=== PATIENT | female | born 1965 | race Caucasian/White ===

== ENCOUNTER 2016-04-18 13:28 | Emergency (ER) ==
[2016-04-18 14:00] VITALS: BP 173/109
--- NOTE | 2016-04-18 14:11 | PROVIDER DOCUMENTATION ---
HPI-General Adult <MilkaEunicelinda Jacobsen - Last Filed: 04/18/16 14:10> - General Source: patient - History of Present Illness -Gen Adult Nature of Presenting Problems: pt is a 50 y/o F that presents to the ER needing refilled on BP meds. she's been out for one year. denies any symptoms. Location of Pain/Injury: reports: none Pain Radiation: reports: no radiation Quality of Pain: reports: none Severity: reports: mild Onset/Duration: reports: gradual, other (month) Timing: reports: still present, constant Context/Activities at Onset: reports: other (out of meds) Modifying Factors: improves with: nothing Associated Symptoms: denies: back/neck pain, dizziness, headaches, nausea, shortness of breath, vomiting Similar Symptoms Previously?: Yes Recently seen or treated by another doctor?: No <Julian Wilson - Last Filed: 04/18/16 14:16> - General Chief Complaint: Request RX Stated Complaint: REQUEST RX Time Seen by Provider: 04/18/16 14:05 Allergies/Adverse Reactions: Patient Allergies Allergy/AdvReac Type Severity Reaction Status Date / Time sulfamethoxazole Allergy Intermediate RASH Verified 08/14/15 14:56 [From Bactrim] trimethoprim [From Bactrim] Allergy Intermediate RASH Verified 08/14/15 14:56 Home Medications: Home Medication List Medication Instructions Recorded Confirmed Last Taken Type Albuterol Sulfate [Albuterol 18 gm IH Q4-6H PRN PRN #2 04/08/15 08/14/15 Rx Sulfate Hfa] hfa.aer.ad Clonidine [Catapres] 0.2 mg PO BID #60 tablet 04/08/15 08/14/15 08/14/15 Rx LISINOpril [Prinivil] 20 mg PO DAILY #90 tablet 04/08/15 08/14/15 08/14/15 Rx Omeprazole [Prilosec] 20 mg PO DAILY@0700 #90 capsule 04/08/15 08/14/15 Rx Phenobarbital 60 mg PO TID #90 tablet 04/08/15 08/14/15 08/14/15 Rx Acetaminophen/Diphenhydramine 1 each PO Q6-8H PRN PRN #30 tablet 0608/14/15 Rx [Percogesic 325-12.5 mg Tablet] Clindamycin [Cleocin] 150 mg PO Q6HR #30 capsule 08/04/15 08/14/15 08/14/15 Rx Albuterol Sulfate Inhaler 2 puff INH Q6H PRN PRN #1 inhaler 08/13/15 08/14/15 Rx [Ventolin Hfa] Diclofenac Na D.r. [Voltaren] 75 mg PO BID #30 tablet 08/13/15 08/14/15 Rx Prednisone 20 mg PO DAILY #12 tablet 08/13/15 08/14/15 08/14/15 Rx Omeprazole [Prilosec] 20 mg PO DAILY@0700 #20 capsule 08/14/15 Unknown Rx Albuterol Sulfate Inhaler 2 puff INH Q6H PRN PRN #1 inhaler 04/18/16 Unknown Rx [Ventolin Hfa] Clonidine [Catapres] 0.2 mg PO BID #60 tablet 04/18/16 Unknown Rx Lisinopril/Hydrochlorothiazide 1 each PO BID #60 tablet 04/18/16 Unknown Rx [Lisinopril-Hctz 10-12.5 mg Tab] Review of Systems - Adult - REVIEW OF SYSTEMS - ADULT Constitutional: reports: no symptoms reported Eyes: denies: decreased vision, blurred vision, double vision Ears, Nose, Mouth & Throat: denies: ear pain, sinus problem, throat pain Cardiovascular: denies: chest pain, edema, palpitations Respiratory: denies: cough, hemoptysis, shortness of breath Gastrointestinal: reports: no symptoms reported Genitourinary: reports: no symptoms reported Musculoskeletal: reports: no symptoms reported Integumentary: reports: no symptoms reported Neurological: denies: dizziness/vertigo, headache/migraines, seizure, syncope Psychiatric: reports: no symptoms reported Endocrine: reports: no symptoms reported Hematologic/Lymphatic: reports: no symptoms reported Allergic/Immunologic: reports: no symptoms reported All Other Systems: Reviewed and Negative <Julian Wilson - Last Filed: 04/18/16 14:16> Past History - Adult - PAST MEDICAL HISTORY-ADULT Major Childhood Illnesses: reports: denies history Cardiovascular: reports: HTN Respiratory: reports: denies history Gastrointestinal: reports: Crohn's Obstetrical/Gynecological: reports: denies history Genitourinary: reports: denies history Musculoskeletal: reports: chronic pain Neurological: reports: Seizures/Epilepsy Psychiatric: reports: depression Endocrine/Immune: reports: lupus Other Conditions: reports: denies history - PRIOR SURGERIES/PROCEDURES Surgical/Procedure History: reports: appendectomy, cholecystectomy, hysterectomy , , tonsillectomy, back/neck - IMMUNIZATION STATUS Childhood Immunizations: See Nurse Assessment Flu Vaccine: See Nurse Assessment - FAMILY HISTORY Family History: reviewed, not pertinent <Eunice Jarquin - Last Filed: 04/18/16 14:10> - PAST MEDICAL HISTORY-ADULT Review of Records: reports: Old Records Reviewed, Nursing Assessment Review, Medications Reviewed Cardiovascular: reports: HTN Respiratory: reports: asthma Neurological: reports: Seizures/Epilepsy Endocrine/Immune: reports: lupus - PRIOR SURGERIES/PROCEDURES Surgical/Procedure History: reports: appendectomy, cholecystectomy, hysterectomy , , tonsillectomy - IMMUNIZATION STATUS Childhood Immunizations: See Nurse Assessment Flu Vaccine: See Nurse Assessment - FAMILY HISTORY Family History: reviewed, not pertinent - SOCIAL HISTORY Smoking: cigarettes, less than 1 pack/day Living Situation: family <Julian Wilson - Last Filed: 04/18/16 14:16> Physical Exam-General - PHYSICAL EXAM-ADULT Initial Vital Signs Reviewed: Yes - CONSTITUTIONAL General Appearance: alert, no apparent distress - EYES Eyes: PERRL/EOMI, pink conjunctivae - HEAD, EARS, NOSE, MOUTH & THROAT HENMT: normocephalic/atraumatic, moist mucous membranes, normal ENT inspection - NECK Neck: non-tender, full range of motion, normal inspection - RESPIRATORY Respiratory: lungs clear, normal breath sounds, no respiratory distress, no accessory muscle use - CARDIOVASCULAR Cardiovascular: regular rate, rhythm, no edema, no murmur - GASTROINTESTINAL (ABDOMEN) Abdominal Exam: normal bowel sounds, non tender, soft, no organomegaly, no pulsatile mass - MUSCULOSKELETAL Back Exam: normal inspection, no vertebral tenderness Extremity: normal range of motion, normal inspection, no pedal edema - SKIN Integumentary: normal color, warm/dry - NEUROLOGIC Neurologic: supervisor alum plant II-XII nml as tested, no motor/sensory deficits - PSYCHIATRIC Psych/Mental Status: normal mood/affect, normal thought content, normal thought process, oriented x 3 <Julian Wilson - Last Filed: 04/18/16 14:16> Progress - PLAN OF CARE/RESULTS Progress/Plan/Lab Results: Vital Signs Temp Pulse Resp BP Pulse Ox 04/18/16 13:57 98 F 99 H 18 173/109 99 sulfamethoxazole [From Bactrim] Allergy (Intermediate, Verified 08/14/15 14:56) RASH trimethoprim [From Bactrim] Allergy (Intermediate, Verified 08/14/15 14:56) RASH Albuterol Sulfate [Albuterol Sulfate Hfa] 18 gm IH Q4-6H PRN PRN #2 hfa.aer.ad 04/08/15 Clonidine [Catapres] 0.2 mg PO BID #60 tablet 04/08/15 LISINOpril [Prinivil] 20 mg PO DAILY #90 tablet 04/08/15 Omeprazole [Prilosec] 20 mg PO DAILY@0700 #90 capsule 04/08/15 Phenobarbital 60 mg PO TID #90 tablet 04/08/15 Acetaminophen/Diphenhydramine [Percogesic 325-12.5 mg Tablet] 1 each PO Q6-8H PRN PRN #30 tablet 08/04/15 Clindamycin [Cleocin] 150 mg PO Q6HR #30 capsule 08/04/15 Albuterol Sulfate Inhaler [Ventolin Hfa] 2 puff INH Q6H PRN PRN #1 inhaler 08/12 Diclofenac Na D.r. [Voltaren] 75 mg PO BID #30 tablet 08/13/15 Prednisone 20 mg PO DAILY #12 tablet 08/13/15 Omeprazole [Prilosec] 20 mg PO DAILY@0700 #20 capsule 08/14/15 Albuterol Sulfate Inhaler [Ventolin Hfa] 2 puff INH Q6H PRN PRN #1 inhaler 04/18 Clonidine [Catapres] 0.2 mg PO BID #60 tablet 04/18/16 Lisinopril/Hydrochlorothiazide [Lisinopril-Hctz 10-12.5 mg Tab] 1 each PO BID # 60 tablet 04/18/16 <Julian Wilson - Last Filed: 04/18/16 14:16> Departure - Departure Time of Disposition Order: 14:10 Certified Medical Emergency: Emergent <Eunice Jarquin - Last Filed: 04/18/16 14:10> <Julian Wilson - Last Filed: 04/18/16 14:16> - Departure DIAGNOSIS: Medication refill Disposition: HOME 01 Condition: Stable Additional Instructions: ED Follow Up Instructions: You have been treated by a care provider in the Emergency Department. These instructions are being provided to you so you can have an understanding of how to care for yourself upon discharge. Upon discharge from the Emergency Department, you are responsible for making arrangements for follow-up care by a physician of your choice. Take all prescribed medications as directed. Return to the Emergency Department immediately for any new or worsening symptoms. You may call the Physician Referral phone number at [phone] to obtain a list of Physicians who are taking new patients. Prescriptions: Clonidine [Catapres] 0.2 mg PO BID #60 tablet Lisinopril/Hydrochlorothiazide [Lisinopril-Hctz 10-12.5 mg Tab] 1 each PO BID # 60 tablet Albuterol Sulfate Inhaler [Ventolin Hfa] 2 puff INH Q6H PRN PRN #1 inhaler PRN Reason: Wheezing Referrals: None,PCP [Primary Care Provider] - Attestation - Scribe Verification/Attestation Scribe:: Julian Wilson Acting as Scribe for:: Eunice Jarquin Scribe documention review:: This chart was documented by a scribe and accurately reflects the service the provider performed and the decisions made by the provider. - Physician/ ELENI Attestation Patient care was provided by Advanced Practice Provider:: Yes Advanced Practice Provider:: Eunice Jarquin Advanced Practice Provider documentation review:: The Mid-level provider documentation, treatment plan and medical decision making was reviewed by the physician who agrees with all treatment and medical decision making by the P. <Julian Wilson - Last Filed: 04/18/16 14:16> Physician Attestation - Physician Attestation I, the provider, attest to the following statement:: Eunice Jarquin Physician documentation Attestation:: This documentation recorded by the scribe accurately reflects the service I personally performed and the decisions made by me. <Julian Wilson - Last Filed: 04/18/16 14:16>
[2016-04-18] MEDS ORDERED: CATAPRES PO ONE (14:16)
[2016-04-18] MEDS ORDERED: CATAPRES ONE (14:17)
== END 2016-04-18 14:21 | disposition home or self-care (01) ==
LOC: P.ED 13:28
DX: Z76.0 Encounter for issue of repeat prescription (principal); I10 Essential (primary) hypertension; G89.29 Other chronic pain; R56.9 Unspecified convulsions; M32.9 Systemic lupus erythematosus, unspecified; J45.909 Unspecified asthma, uncomplicated; Z79.899 Other long term (current) drug therapy
CPT/HCPCS: 99282

== ENCOUNTER 2016-05-25 15:52 | Inpatient (IN) ==
[2016-05-25] MEDS ORDERED: XYLOCAINE-MPF 1% INJ ONE (16:44)
[2016-05-25] MEDS ORDERED: MORPHINE IV ONE (16:44)
[2016-05-25] MEDS ORDERED: ZOFRAN IV ONE (16:44)
[2016-05-25] MEDS ORDERED: TYLENOL PO ONE (16:48)
--- NOTE | 2016-05-25 16:51 | PROVIDER DOCUMENTATION ---
HPI-General Adult - General Chief Complaint: Extremity Pain Stated Complaint: EXTREMITY PAIN Time Seen by Provider: 05/25/16 16:28 Source: patient Allergies/Adverse Reactions: Patient Allergies Allergy/AdvReac Type Severity Reaction Status Date / Time sulfamethoxazole Allergy Intermediate RASH Verified 08/14/15 14:56 [From Bactrim] trimethoprim [From Bactrim] Allergy Intermediate RASH Verified 08/14/15 14:56 Home Medications: Home Medication List Medication Instructions Recorded Confirmed Last Taken Type Albuterol Sulfate [Albuterol 18 gm IH Q4-6H PRN PRN #2 04/08/15 08/14/15 Rx Sulfate Hfa] hfa.aer.ad Clonidine [Catapres] 0.2 mg PO BID #60 tablet 04/08/15 08/14/15 08/14/15 Rx LISINOpril [Prinivil] 20 mg PO DAILY #90 tablet 04/08/15 08/14/15 08/14/15 Rx Omeprazole [Prilosec] 20 mg PO DAILY@0700 #90 capsule 04/08/15 08/14/15 Rx Phenobarbital 60 mg PO TID #90 tablet 04/08/15 08/14/15 08/14/15 Rx Acetaminophen/Diphenhydramine 1 each PO Q6-8H PRN PRN #30 tablet 08/04/1508/14/15 Rx [Percogesic 325-12.5 mg Tablet] Clindamycin [Cleocin] 150 mg PO Q6HR #30 capsule 08/04/15 08/14/15 08/14/15 Rx Albuterol Sulfate Inhaler 2 puff INH Q6H PRN PRN #1 inhaler 08/13/15 08/14/15 Rx [Ventolin Hfa] Diclofenac Na D.r. [Voltaren] 75 mg PO BID #30 tablet 08/13/15 08/14/15 Rx Prednisone 20 mg PO DAILY #12 tablet 08/13/15 08/14/15 08/14/15 Rx Omeprazole [Prilosec] 20 mg PO DAILY@0700 #20 capsule 08/14/15 Unknown Rx Albuterol Sulfate Inhaler 2 puff INH Q6H PRN PRN #1 inhaler 04/18/16 Unknown Rx [Ventolin Hfa] Clonidine [Catapres] 0.2 mg PO BID #60 tablet 04/18/16 Unknown Rx Lisinopril/Hydrochlorothiazide 1 each PO BID #60 tablet 04/18/16 Unknown Rx [Lisinopril-Hctz 10-12.5 mg Tab] - History of Present Illness -Gen Adult Nature of Presenting Problems: Pt. is 50 yof that presents with c/o right foot pain. Pt. states she turned her ankle about two weeks ago and it didn't bother her but two days ago it began to swell and hurt. Pt. states she can't walk on it now and that it hurts to bad. Location of Pain/Injury: reports: feet (Right). denies: head, face, mouth, neck , chest, upper extremity, hand(s), abdomen, back, pelvis, genitalia, lower extremity, upper body, lower body, generalized Pain Radiation: reports: no radiation Quality of Pain: reports: aching. denies: burning, cramping, dull, fullness, indigestion, pressure, sharp, stabbing, tearing, throbbing, tightness Severity: reports: moderate. denies: mild, severe Onset/Duration: reports: gradual, 2 days ago Timing: reports: still present. denies: improving, gone now, resolved prior to arrival, intermittent, constant, changing over time, getting worse Context/Activities at Onset: denies: none, recent emotional stress, recent physical stress, recent trauma history, possible bad food, cold exposure, out of country travel Modifying Factors: improves with: nothing Associated Symptoms: reports: trouble walking, other (Right foot pain). denies : anxiety, arm pain, back/neck pain, chest pain, constipation, cough, diaphoresis, diarrhea, dizziness, EENT symptoms, fatigue, fever/chills, genitourinary problems, headaches, heartburn, joint pain, loss of appetite, malaise, muscle aches, sinus congestion/drainage, nausea, rash, seizure, shortness of breath, sensory/motor loss, pain with inspiration, swelling/mass in abdomen, syncope, vomiting, weakness Similar Symptoms Previously?: Yes Recently seen or treated by another doctor?: No Review of Systems - Adult - REVIEW OF SYSTEMS - ADULT Constitutional: reports: see HPI. denies: chills, fatique, night sweats Eyes: reports: see HPI. denies: discharge, blurred vision, double vision Ears, Nose, Mouth & Throat: reports: see HPI. denies: ear discharge, ear pain, hearing loss, sinus problem, nose pain, mouth/dental pain, throat pain, throat swelling Cardiovascular: reports: see HPI. denies: chest pain, irregular heart rate, orthopnea, syncope Respiratory: reports: see HPI. denies: cough, dyspnea on exertion, pleurisy, shortness of breath, wheezing Gastrointestinal: reports: see HPI. denies: abdominal pain, hematemesis, diarrhea, nausea, vomiting Genitourinary: reports: see HPI. denies: dysuria, discharge, flank pain, hesitency, urgency Musculoskeletal: reports: see HPI. denies: bone pain, back pain, joint pain, muscle aches, neck pain Integumentary: reports: see HPI, skin sores/ulcer (Large abscess to top or left foot with surrounding edema and erythema to the whole foot.). denies: hives, itching, rash, skin thickening Neurological: reports: see HPI. denies: ataxia, headache/migraines, numbness, seizure, tremors Psychiatric: reports: see HPI. denies: anxiety, depression, emotional problems , insomnia, panic attacks, suicidal thoughts Past History - Adult - PAST MEDICAL HISTORY-ADULT Review of Records: reports: Old Records Reviewed, Nursing Assessment Review, Medications Reviewed, Social history reviewed & non-contributory. Major Childhood Illnesses: reports: denies history Cardiovascular: reports: HTN Respiratory: reports: asthma Gastrointestinal: reports: Crohn's Obstetrical/Gynecological: reports: denies history Genitourinary: reports: denies history Musculoskeletal: reports: chronic pain Neurological: reports: Seizures/Epilepsy Psychiatric: reports: depression Endocrine/Immune: reports: lupus Other Conditions: reports: denies history - PRIOR SURGERIES/PROCEDURES Surgical/Procedure History: reports: appendectomy, cholecystectomy, hysterectomy , , tonsillectomy - IMMUNIZATION STATUS Childhood Immunizations: See Nurse Assessment Flu Vaccine: See Nurse Assessment - FAMILY HISTORY Family History: reviewed, not pertinent - SOCIAL HISTORY Smoking: cigarettes, greater than 1 pack/day Provider spent 3-5 mins advising pt. on dangers of tobacco.: Discussed the need to stop smoking. Physical Exam-General - PHYSICAL EXAM-ADULT Initial Vital Signs Reviewed: Yes - CONSTITUTIONAL General Appearance: alert, moderate distress, thin. negative: obese, anxious, lethargic, slow to respond, obtunded, combative - EYES Eyes: PERRL/EOMI, pink conjunctivae. negative: conjuctival exudate, scleral icterus, subconjunctival hemorrhage - HEAD, EARS, NOSE, MOUTH & THROAT HENMT: normocephalic/atraumatic, moist mucous membranes. negative: angioedema, frontal tenderness, maxillary tenderness - NECK Neck: non-tender, full range of motion, supple, normal inspection. negative: lymphadenopathy, trachial deviation, thyromegaly - RESPIRATORY Respiratory: lungs clear, normal breath sounds. negative: crackles, rales, rhonchi, stridor, wheezing - CARDIOVASCULAR Cardiovascular: normal peripheral pulses, regular rate, rhythm, no edema, no JVD , no murmur. negative: extra beats, friction rub, irregularly irregular - GASTROINTESTINAL (ABDOMEN) Abdominal Exam: normal bowel sounds, non tender, soft. negative: distended, guarding, rigid, rebound, tenderness, hernia, mass - LYMPHATIC Lymphatic: no adenopathy. negative: axilla node tender, cervical node tenderness - MUSCULOSKELETAL Back Exam: normal inspection, no CVA tenderness, no vertebral tenderness. negative: ecchymosis, swelling, vertebral tenderness Extremity: erythema (Large abscess to top or right foot with surrounding edema and erythema to the whole foot.), swelling (Large abscess to top or right foot with surrounding edema and erythema to the whole foot.), tenderness (Large abscess to top or right foot with surrounding edema and erythema to the whole foot.). negative: normal gait, deformity, inflammation Peripheral Pulses: radial (R): 2+, radial (L): 2+ - SKIN Integumentary: erythema (Large abscess to top or right foot with surrounding edema and erythema to the whole foot.), swelling (Large abscess to top or right foot with surrounding edema and erythema to the whole foot.), tenderness (Large abscess to top or left right with surrounding edema and erythema to the whole foot.). negative: cyanosis, diaphoresis, ecchymosis, jaundice, mottled, pallor , petechiae, purpura, rash - NEUROLOGIC Neurologic: grossly normal, no motor/sensory deficits. negative: aphasia, facial droop, focal weakness, motor weakness, sensory deficit - PSYCHIATRIC Psych/Mental Status: normal mood/affect, normal thought content, normal thought process, oriented x 3, tearful. negative: anxious, paranoid Progress - PLAN OF CARE/RESULTS Progress/Plan/Lab Results: Vital Signs - 8 hr 05/25/16 16:16 Temperature 99.7 F H Pulse Rate 113 H Respiratory Rate 20 Blood Pressure 156/093 O2 Sat by Pulse Oximetry 100 Orders Category Date Time Status Laceration Set up DIRECTED Care 05/25/16 16:45 Ordered Saline Loc NOW Care 05/25/16 16:42 Ordered FOOT COMPLETE RIGHT [RAD] Stat Exams 05/25/16 16:13 Taken CBC WITH ELECTRONIC DIFF [HEME] Stat Lab 05/25/16 16:42 Ordered COMPREHENSIVE METABOLIC PANEL [CHEM] Stat Lab 05/25/16 16:42 Ordered Lidocaine 1% Pf [Xylocaine-Mpf 1%] Med 05/25/16 16:44 Once 10 ml INJ NOW ONE Morphine Med 05/25/16 16:44 Once 4 mg IV NOW ONE Ondansetron [Zofran] Med 05/25/16 16:44 Once 4 mg IV NOW ONE Discussed results and plan of care with patient. Patient agrees with plan and verbalizes understanding. Result Diagrams: 05/25/16 17:20 05/25/16 17:20 - XRAY 1 XRAY: Right XRAY Study: Foot XRAY Interpretation: Soft tissue swelling, No acute bony disease ([place]) - CONSULTS/PCP/HOSPITALIST Notification #1 *Consult/PCP/Hospitalist*: Dr. Moon Time Discussed: 18:25 Reason/Comments: Admission Consult Disposition: Admit Procedures - INCISION & DRAINAGE Site: Dorsal right foot Abscess Type: Subcutaneous Prepped with: Betadine Anesthetic: 1%, Lidocaine/Xylocaine Volume of Anesthetic (ml's): 4 Blade Size: 11 Packing placed?: Yes Sterile Dressing Applied?: Yes Drainage: Large Amount, Purulent Departure - Departure Time of Disposition Decision: 18:27 DIAGNOSIS: Abscess or cellulitis of foot Disposition: ADMITTED INPATIENT 09 Certified Medical Emergency: Emergent Condition: Stable Referrals and Follow-Ups: None,PCP [Primary Care Provider] - Attestation - Physician/ ELENI Attestation Patient care was provided by Advanced Practice Provider:: Yes Advanced Practice Provider:: Igor Chaves Advanced Practice Provider documentation review:: The Mid-level provider documentation, treatment plan and medical decision making was reviewed by the physician who agrees with all treatment and medical decision making by the MLP.
[2016-05-25] MEDS ORDERED: NS 1,000 ML IV ONE ×2 (16:52→18:29)
--- NOTE | 2016-05-25 16:56 | Diag Imaging Result Document ---
PROCEDURE NAME: FOOT COMPLETE RIGHT - 05/25/2016 RIGHT FOOT 3 VIEWS: FINDINGS: There is severe soft tissue swelling dorsally at the level of the base of the metatarsals. No evidence of fracture or dislocation is present. IMPRESSION: Soft tissue swelling. No acute bony disease.
[2016-05-25 17:31] LABS: MANUAL DIFF NEEDED? NO
[2016-05-25] MEDS ORDERED: VANCOMYCIN 1 GM/NS 1 GM/250 ML IVPB IV ONE (17:42)
[2016-05-25 17:53] LABS: BASO% 0.6 % (0.0-0.8); EOS# 0.32 X1000 (0.0-0.7); EOS% 2.6 % (0.0-10.0); HEMATOCRIT 35.5 % (37.0-47.0); HEMOGLOBIN 11.7 g/dL (12.0-16.0); LYMPH# 2.49 X1000 (1.2-3.4); LYMPH% 20.5 % (20.5-51.1); MCH 29.3 PG (27-31); MCV 88.8 FL (81-99); MONO# 1.13 X1000 (0.11-0.59); MONO% 9.3 % (1.7-9.3); MPV 10.3 FL (7.4-10.4); NEUT% 66.5 % (42.2-75.2); PLT 322 X1000 (130-400)
[2016-05-25] MEDS ORDERED: DILAUDID IV ONE (17:56)
[2016-05-25 18:02] LABS: AGAP 17; ALBUMIN 4.2 g/dL (3.5-5.0); ALKALINE PHOSPHATASE 135 U/L (32-104); BUN 17 mg/dL (8-22); CALCIUM 9.7 mg/dL (8.8-10.2); CHLORIDE 99 mmol/L (98-107); COSMO 274; GOT 26 U/L (10-30); GPT 58 U/L (10-36); POTASSIUM 3.9 mmol/L (3.5-5.1); SODIUM 136 mmol/L (136-145); TCO2 21 mmol/L (25-35); TOTAL PROTEIN 7.2 g/dL (6.3-8.3)
[2016-05-25] MEDS ORDERED: ATIVAN IV ONE (18:06)
[2016-05-25] MEDS ORDERED: ATIVAN ONE (18:06)
[2016-05-25] MEDS ORDERED: MORPHINE IV PRN (18:29)
[2016-05-25] MEDS ORDERED: TYLENOL PO PRN ×2 (18:29→19:24)
[2016-05-25] MEDS ORDERED: VANCOMYCIN IV PER PHARMACY MISC SCH (18:30)
[2016-05-25] MEDS ORDERED: DUONEB (A & A) INH PRN (19:24)
[2016-05-25] MEDS: DILAUDID IV PRN (19:57)
[2016-05-25] MEDS: ROCEPHIN 1 GM/NS 1 GM/50 ML IVPB IV SCH (19:58)
[2016-05-26] MEDS: DILAUDID IV PRN ×10 (00:34→22:07)
[2016-05-26] MEDS: ZOFRAN IV PRN ×3 (02:56→11:53)
[2016-05-26 05:46] LABS: HEMATOCRIT 30.3 % (37.0-47.0); HEMOGLOBIN 9.5 g/dL (12.0-16.0); MCH 28.4 PG (27-31); MCHC 31.4 g/dL (33-37); MCV 90.7 FL (81-99); MPV 9.9 FL (7.4-10.4); RBC 3.34 XMIL (4.2-5.4)
[2016-05-26 06:10] LABS: AGAP 9; ALBUMIN 3.6 g/dL (3.5-5.0); ALKALINE PHOSPHATASE 118 U/L (32-104); BUN 14 mg/dL (8-22); CALCIUM 8.7 mg/dL (8.8-10.2); CHLORIDE 102 mmol/L (98-107); COSMO 277; GOT 23 U/L (10-30); GPT 47 U/L (10-36); SODIUM 138 mmol/L (136-145); TCO2 26 mmol/L (25-35); TOTAL PROTEIN 6.1 g/dL (6.3-8.3)
[2016-05-26] MEDS: PRILOSEC PO SCH (06:10)
--- NOTE | 2016-05-26 08:28 | PROGRESS NOTE ---
DATE: 05/26/2016 SUBJECTIVE: The patient notes that the pain in her foot is a little bit better this morning. She is still having lots of drainage from the I and D yesterday. PHYSICAL EXAMINATION: Vital Signs: Temperature 98 degrees, pulse 102, respiratory rate 16, blood pressure 127/75, and saturation is 97% on room air. General: The patient is a well-developed, overweight female who is currently in no respiratory distress. She is awake and alert. Neck: Supple. Cardiovascular: Regular rate. Chest: Relatively clear. Extremities: Moves all extremities. Skin: She is noted to have lots of drainage from her open wound on her right foot. However, the erythema actually is less the marked area from last night. ASSESSMENT: 1. Cellulitis with abscess, right foot, continues to drain. Culture pending. 2. Leukocytosis, improved. 3. Fever, improved. 4. Sepsis, as noted by fever, tachycardia, and pus draining from her right foot, improving. 5. Chronic pain. PLAN: We will continue the patient on pain medication. Continue IV vancomycin and Rocephin and continue to follow. cc: Keyon Moon MD
[2016-05-26] MEDS: VANCOMYCIN 1,200 MG in NS 250 ML IV SCH (16:19)
--- NOTE | 2016-05-26 16:29 | HISTORY AND PHYSICAL ---
CHIEF COMPLAINT: Right foot pain. HISTORY OF PRESENT ILLNESS: This is a 50-year-old female who presented to the emergency room complaining of right foot pain stating that she turned her ankle about 2 weeks ago and it did not bother until 2 days prior to coming to the emergency room. She stated she began to have some edema and pain. She was found to have a large abscess to the top of her right foot with erythema to the whole foot. I and D was performed in the emergency room for a large amount of drainage. Wound cultures were sent. She was given vancomycin and admitted for further evaluation and treatment. PAST MEDICAL HISTORY: Substance abuse, asthma, hypertension, depression. PAST SURGICAL HISTORY: Appendectomy, cholecystectomy, , hysterectomy, tonsillectomy. SOCIAL HISTORY: She smokes half a pack a day. At present she denies any illicit drug use or alcohol use. ALLERGIES: Bactrim which causes a rash. HOME MEDICATIONS: Phenobarbital 60 mg t.i.d., Catapres 0.2 b.i.d., Prinivil 20 daily, Prilosec 20 mg daily, Ventolin inhaler q.6 hours p.r.n., Percogesic 1 every 6-8 hours p.r.n. REVIEW OF SYSTEMS: A 14 point review of systems was discussed with patient with pertinent positives as stated in the HPI. She denied chest pain, palpitations, syncope, dizziness, shortness of breath, cough, fever, chills, nausea, vomiting, diarrhea, constipation, black or bloody vomitus, black or bloody stools, hematuria, dysuria, frequency or urgency. PHYSICAL EXAMINATION: GENERAL: This is a 50-year-old female who is lying in bed with no distress. VITAL SIGNS: Blood pressure 137/86, heart rate 93, respirations 18, temperature 98.7 degrees oral, with room air saturations 97 and 98%. HEENT: Head is normocephalic, atraumatic. Pupils equal, round, reactive to light. EOMs are intact. Sclerae anicteric. Mucous membranes are moist. NECK: Supple. Trachea midline. CARDIOVASCULAR: Regular rate and rhythm. S1 and S2 appreciated. PULMONARY: Breath sounds are clear with no increased work of breathing noted. GASTROINTESTINAL: Abdomen is soft, nontender, nondistended with bowel sounds in all 4 quadrants. MUSCULOSKELETAL: Good range of motion of joints. NEUROLOGIC: She is alert and oriented x3. EXTREMITIES: No clubbing or cyanosis to left lower extremity or bilateral upper extremities. She does have an open wound to her right foot with dressing intact at present. LABS: WBC 12.1 with a hemoglobin of 11.7, hematocrit 35.5 and platelets of 322,000. Sodium is 136, potassium 3.9, BUN 17, creatinine 0.8, with a glucose of 114. ASSESSMENT AND PLAN: 1. Cellulitis with abscess to the right foot status post I and D in the emergency room. Culture is pending. 2. Leukocytosis. 3. Fever. 4. Sepsis as noted by fever, tachycardia, drainage from her right foot. 5. Chronic pain. She will be admitted to the hospital. We will continue with IV hydration. She received vancomycin in the emergency room. We will continue this. We will add Rocephin. We will give IV pain and nausea control, Prilosec for gastric acid suppression. 6. Further treatment pending hospital course. Dictated by JESSICA Curtis for Keyon Moon MD cc: JESSICA Curtis MD
[2016-05-26] MEDS: ROCEPHIN 1 GM/NS 1 GM/50 ML IVPB IV SCH (20:01)
[2016-05-27] MEDS: DILAUDID IV PRN (00:07)
[2016-05-27] MEDS ORDERED: VENTOLIN HFA INH PRN (06:41)
[2016-05-27] MEDS ORDERED: PATIENT'S OWN MED PO PRN (06:41)
[2016-05-27] MEDS: PRILOSEC PO SCH (06:57)
[2016-05-27] MEDS ORDERED: PRILOSEC PO SCH (07:00)
--- NOTE | 2016-05-27 08:53 | PROGRESS NOTE ---
DATE: 05/27/2016 SUBJECTIVE: The patient complains of pain but no other issues. Notes that her foot still drains. Interestingly, she notes that her IVs continue to fall out. She also notes that her bandage on her right foot which is wrapped and taped continues to fall off. PHYSICAL EXAMINATION: Vital Signs: Temperature 99, pulse 96, respiratory rate 18, BP 109/71, saturation 95% on room air. General: Patient is a well developed female who is awake, alert, and oriented. She is crying this morning because she has not had Dilaudid in a few hours. Unfortunately, she has not had Dilaudid in few hours secondary to her pulling 3 IVs out in the last 18 hours. HEENT: Normocephalic, atraumatic. Neck: Supple. CV: Regular rate. Chest: Relatively clear. Abdomen: Soft. Extremities: Moves all extremities. Skin: Her right foot is still swollen but much less edematous, much less erythema. She no longer has edema or erythema past her ankle. Prior, it was to just below her mid denson. This is improving. She currently does not have any drainage. ASSESSMENT: 1. Cellulitis of the right foot. 2. Gram-positive cocci from right foot Gram stain. 3. Hypertension. 4. Chronic pain. 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 Ms. Mensah certainly appears a little confused this morning. Her home medicines list Percocet. She told me on admission that she takes Percocet every 4-6 hours at home. However, today, she is denying that she takes any Percocet at home and states she does not remember even talking to me the day she came. We will consult wound therapy and continue to follow. We will ask lab for I and D on her wound culture to see if we need to put in a PICC line, although certainly concerned with her and a PICC line at home. cc: Keyon Moon MD
[2016-05-27] MEDS: PHENOBARBITAL PO SCH ×3 (09:27→16:39)
[2016-05-27] MEDS: PRINIVIL PO SCH (09:28)
[2016-05-27] MEDS: CATAPRES PO SCH ×2 (09:28→21:00)
[2016-05-27] MEDS: DILAUDID PO PRN ×2 (10:55→16:39)
[2016-05-27] MEDS: PHENERGAN PO PRN (16:39)
[2016-05-27] MEDS: VANCOMYCIN 1,200 MG in NS 250 ML IV SCH (18:39)
[2016-05-27] MEDS: ROCEPHIN 1 GM/NS 1 GM/50 ML IVPB IV SCH (21:44)
[2016-05-28] MEDS: DILAUDID IV PRN ×2 (01:11→05:00)
[2016-05-28] MEDS: PHENERGAN PO PRN ×3 (05:00→21:18)
[2016-05-28] MEDS: PRILOSEC PO SCH (06:20)
[2016-05-28] MEDS ORDERED: DILAUDID IV PRN (07:42)
--- NOTE | 2016-05-28 08:02 | PROGRESS NOTE ---
DATE: 05/28/2016 SUBJECTIVE: Patient is without complaints. Notes that her foot is still painful but actually a little bit less. Notes that it was extremely painful during the I D process yesterday. OBJECTIVE: Vital signs: Temperature 99, T-max 100.7 degrees, pulse 97, respiratory 18, BP stable. General: Patient is awake, alert, oriented. She is in no distress. She is sitting up, watching television. HEENT: Normocephalic. Neck: Supple. CV: Regular rate. Chest: Relatively clear. Abdomen: Soft. Extremities: Moves all extremities. Foot good distal pulses and sensation. Bandage clean, dry, and intact. ASSESSMENT: 1. Gram-positive cellulitis. Culture and sensitivity currently pending. 2. Febrile illness. 3. Sepsis as noted by fever and tachycardia secondary to gram-positive cellulitis. PLAN: We will continue patient on vancomycin until her culture and sensitivity return. Hopefully, this will be sensitive to oral doxycycline as she is resistant to Bactrim. We will continue to follow. cc: Keyon Moon MD
[2016-05-28] MEDS: PHENOBARBITAL PO SCH ×3 (09:33→17:08)
[2016-05-28] MEDS: CATAPRES PO SCH ×2 (09:33→21:18)
[2016-05-28] MEDS: DILAUDID PO PRN ×2 (09:33→17:13)
[2016-05-28] MEDS: PRINIVIL PO SCH (09:34)
[2016-05-28] MEDS: PERCOCET-10 PO PRN ×2 (14:46→21:18)
[2016-05-28] MEDS ORDERED: VANCOMYCIN 1,400 MG in NS 250 ML IV SCH ×2 (17:00→20:00)
[2016-05-28] MEDS ORDERED: VANCOMYCIN IV PER PHARMACY MISC SCH (19:15)
[2016-05-28] MEDS ORDERED: DOXYCYCLINE PO SCH (21:00)
--- NOTE | 2016-05-28 21:37 | CONSULTATION ---
DATE OF CONSULTATION: 05/28/2016 REQUESTING PHYSICIAN: Hospitalist Service. REASON FOR CONSULTATION: Consult concerning right foot abscess. HISTORY OF PRESENT ILLNESS: A 50-year-old female initially presented to the emergency department over the weekend with complaints of right foot pain that started 2 weeks prior. She noticed some swelling and erythema and edema in that foot. She was found to have a large abscess on the top of her right foot that was drained in the emergency department with cultures sent that showed Staph aureus. She was given vancomycin and admitted for further evaluation. She had continued drainage. There was some concern that she might have undrained abscess. I was asked to evaluate the patient. She is reporting less tenderness currently, but still having some pain in the right foot. No other major issues. PAST MEDICAL HISTORY: Substance abuse, asthma, hypertension, depression. PAST SURGICAL HISTORY: Previous incision and drainage of the right foot, appendectomy, cholecystectomy, , hysterectomy, tonsillectomy. SOCIAL: Smoker. ALLERGIES: Bactrim causes a rash. HOME MEDICATIONS: Phenobarbital, Catapres, Prinivil, Prilosec, Ventolin, Percogesic, and currently on vancomycin. FAMILY HISTORY: Reviewed with patient, but noncontributory. REVIEW OF SYSTEMS: A full 10 point review of systems obtained, negative except as specified in HPI. PHYSICAL EXAMINATION: Vital Signs: Patient is currently afebrile. Temperature 99.6 degrees, pulse is anywhere between 84-100, respiratory rate is nonlabored at 19, blood pressure 154/87, O2 saturation 99% on room air. General examination: No acute distress. Alert, interactive, female, looks stated age. HEENT: Normocephalic, atraumatic. Pupils are equal, round, reactive to light. Mucous membranes moist. Oropharynx benign. Neck: Supple. Trachea midline. Cardiovascular: Regular rate and rhythm. Lungs: Grossly clear. Abdomen: Soft, nontender, nondistended. Extremities: There is an area of erythema noted to the dorsal aspect of the right foot. This erythematous tissue is spread over the entirety of the foot. There is an area of fluctuance noted where her previous incision and drainage had been performed. I performed a bedside aspiration of some purulence and drained more purulence from the area, and she does have significant tenderness to this area. The extremity is perfused. Vascular: Lower extremities perfused. Neurologic: Grossly intact. LABORATORY: Reviewed from several days ago. No current labs. IMAGING: A right foot x-ray was performed several days ago that showed no bony disease to suggest osteomyelitis. ASSESSMENT AND PLAN: A 50-year-old female with right foot abscess: Right foot abscess. At this time, I was able to drain some more purulence at the bedside. I did this under sterile conditions with an 18-gauge needle and syringe. We expressed some more purulence to the area. The patient tolerated the procedure well. She remained in her hospital bed. At this point, I would recommend continued antibiotics. I told the patient it was okay for her to get in the shower and continue to express this area. I think overall she will not need any more further debridement or incision and drainage and that we can would watch this area. I suspect it will heal up on its own. The patient could be discharged relatively soon on p.o. antibiotics. I will continue to follow the patient with you while she is here. I appreciate the consult. cc: Ezequiel Harmon MD
--- NOTE | 2016-05-28 22:33 | CONSULTATION ---
DATE OF CONSULTATION: 05/28/2016 CONCLUSION: The patient is admitted to the hospital with a right foot abscess. I am concerned that she may still have a deep seated abscess or an osteomyelitis of the right foot. The patient has lupus and she normally takes steroids for that and thus, I think she qualifies as a immunocompromised host. RECOMMENDATIONS: I have restarted the patient on vancomycin because I am concerned that the infection may be more than just a superficial infection and because, as mentioned above, the patient is an immunocompromised host. I have ordered that a PICC be placed and I have consulted [facility] to supply the patient with home IV antibiotics. I have ordered an MRI of the foot also. DISCUSSION: The patient tells me that approximately a week ago she developed erythema and swelling of the right foot. She showed me a picture of it and it was quite impressive how large the foot was. A culture taken from the foot is growing methicillin-resistant Staph aureus. The patient has had that partly drained today. She has had a needle aspiration of the foot which obtained a sanguinopurulent fluid. The patient's laboratory studies show a if she has a CBC with a white count of 10,760, hemoglobin 9.5, and platelet count 368,000. Patient's creatinine is 0.8. Liver function studies are almost normal. The ALT is 47 and the alkaline phosphatases 118. PAST MEDICAL HISTORY/REVIEW OF SYSTEMS: Eyes and ears: She denies difficulty hearing or seeing. Neck: No meningismus. Respiratory: No cough or shortness of breath. Cardiovascular: No chest pain or palpitations. GI: No nausea, vomiting, or diarrhea. : No dysuria or flank pain. Bones, joints, muscles: See present illness for the patient's right foot infection. Currently, she is not complaining of any other joints or muscle pain. Endocrine: Patient does not have diabetes or thyroid disease. Neurologic: She does not have seizures. She does not have any loss of motor function. Integument: No rashes. The remainder of the patient's review of systems was completed and was negative. NURSING SPECIALIST HISTORY: She is a 7, para 4 AB 3. She has had 2 sections. She has had a hysterectomy. She has had removal of ovarian cysts. PREVIOUS HOSPITALIZATIONS AND OPERATIONS: Patient has had labor and deliveries, 2 C-sections, hysterectomy and removal of ovarian cysts. She has had 14 back operations, including placement of metal in her back which is titanium. She has had a cholecystectomy, an appendectomy and a tonsillectomy. MEDICAL DISEASES: Positive for hypertension, systemic lupus, and seizure disorder. INFECTIOUS DISEASE HISTORY: Negative for pneumonia. The patient said she has had UTI in the past. FAMILY HISTORY: The patient is adopted, but she does know some of the illnesses in her biological. They include myocardial infarction, cancer, and stroke. SOCIAL HISTORY: [place] She is single. She lives very near the [facility]. Her cousin lives with her. She does not have any pets. She does not drink, smoke or abuse drugs. ALLERGIES: She is allergic to trimethoprim, sulfamethoxazole. She is disabled. HOME MEDICATIONS: Percogesic, albuterol inhaler, Prilosec, Prinivil, Catapres and phenobarbital. PHYSICAL EXAMINATION: Vital Signs: The patient's temperature is 99.6 degrees, pulse 100, respirations 19, blood pressure 154/87. Patient weighs 145 pounds. General: This is a fairly healthy-appearing, middle-aged female. She is in no acute distress. Head, eyes, ears, nose, and throat: She can hear my spoken words and see near objects. No drainage noted from the nose or ears. There were no white patches on her tongue. Lungs: Clear to auscultation. Cardiovascular: Regular heart rate. Abdomen: Soft and nontender. Neurologic: Patient is alert. She can move her extremities. There is no tremor. Integument: No rash. Bones, joints, muscles: The right foot is swollen and erythematous and tender. There is a small amount of sanguinopurulent drainage coming from the dorsum of the foot. Thank you for the consult. cc: Andi Strange MD
[2016-05-29] MEDS: PERCOCET-10 PO PRN ×2 (06:19→10:04)
[2016-05-29] MEDS: PRILOSEC PO SCH (06:19)
[2016-05-29 06:27] LABS: PROTIME 11.4 Seconds (12.1-15.5)
[2016-05-29 06:49] LABS: INR 0.8 (0.86-1.15)
[2016-05-29] MEDS ORDERED: NS 500 ML ONE (07:18)
--- NOTE | 2016-05-29 08:20 | PROGRESS NOTE ---
DATE: 05/29/2016 SUBJECTIVE: Patient doing okay. She is currently getting a PICC line placed. Reviewed Dr. Strange' note. OBJECTIVE: Vital Signs: Patient is currently afebrile. Her vital signs have been stable. General: No acute distress. Alert, interactive. Lungs: Grossly clear. Abdomen: Soft, nontender, nondistended. Extremities: Erythema essentially unchanged. Overall, I think this patient is essentially stable. IMAGING: She has an MRI planned. ASSESSMENT AND PLAN: A 50-year-old female with right lower extremity cellulitis. Right lower extremity cellulitis: At this time, the abscess was drained further at the bedside. She does have an MRI pending and will follow up with the results of that. I do not suspect she has any deeper abscess, but the MRI will prove or disprove this fact. cc: Ezequiel Harmon MD
[2016-05-29] MEDS ORDERED: VANCOMYCIN 1,400 MG in NS 250 ML IV SCH (09:00)
[2016-05-29] MEDS: CATAPRES PO SCH (09:28)
[2016-05-29] MEDS: PHENOBARBITAL PO SCH (09:28)
[2016-05-29] MEDS: PRINIVIL PO SCH (09:28)
[2016-05-29 09:40] VITALS: BP 146/80
[2016-05-29] MEDS ORDERED: HEPARIN ONE (10:00)
--- NOTE | 2016-05-29 14:30 | DISCHARGE SUMMARY ---
ADMISSION DATE: 05/25/2016 DISCHARGE DATE: 05/29/2016 DISCHARGE DIAGNOSES: 1. Cellulitis of the right foot with methicillin-resistant Staphylococcus aureus. 2. Lupus. 3. Leukocytosis. 4. Fever. 5. Sepsis resolved. CONSULTATIONS: 1. Dr. Harmon for I and D. 2. Dr. Strange with Infectious Disease. BRIEF HOSPITAL COURSE: The patient is a 50-year-old female who was admitted as noted on the HPI. She had an I and D in the ER and drainage grew methicillin-resistant Staphylococcus aureus. Wound was consulted and they also several days were able to express pus from the foot. Unfortunately continued to worsen, and therefore Dr. Harmon was called, and he opened the foot a little bit further and expressed a fair amount more of fluid. On discharge, she is awake, alert, she is in no distress. She has had a PICC line placed. DISPOSITION: Thirty-five minutes were spent in discharge planning and instructions. Prescription for clonidine 0.2 mg b.i.d. one refill, lisinopril 20 mg once daily, #90 and 1 refill, oxycodone #45 every 6 hours as needed and phenobarbital 60 mg 3 times a day were written. Discussed with the patient that she needs to find a primary care of her choice and follow up to continue getting her prescriptions. Thirty-five minutes were spent in discharge planning and instructions. She will be discharged home with vancomycin for the next 2 to 3 weeks. She will follow up with Dr. Strange to determine further length of antibiotics if needed. cc: Keyon Moon MD
--- NOTE | 2016-05-30 07:32 | Diag Imaging Result Document ---
PROCEDURE NAME: CHEST-PORTABLE - 05/29/2016 SINGLE FRONTAL RADIOGRAPH OF THE CHEST: COMPARISON: 05/15/2013. FINDINGS: There has been interval placement of a right PICC line. The tip projects over the lower SVC near the atriocaval junction in the expected position. The lungs are clear. There is no definite pleural fluid collection. Cardiac silhouette and central vasculature are grossly unremarkable. IMPRESSION: Interval placement of right PICC line in the expected position as described. No definite acute pathology.
== END 2016-05-29 11:15 | disposition home health service (06) ==
LOC: P.ED 15:52 → P.MEDSURG 15:52 → OBSVTOIN 19:11
PROVIDERS: ATTEND Family Medicine